=== PATIENT | female | born 1965 | race Caucasian/White ===

== ENCOUNTER 2021-08-03 20:57 | Observation (INO) | payer BC ==
[~2021-08-03] VITALS: Ht 152.4 cm; Wt 72.6 kg
[2021-08-03 21:36] VITALS: BP 131/85
[2021-08-03] MEDS ORDERED: ENTOCORT EC 3 MG3 MG PO (21:43)
[2021-08-03] MEDS ORDERED: PRILOSEC OTC20 MG PO (21:44)
[2021-08-04 03:01] LABS: ABSOLUTE EOSINOPHILS 0.1 thou/uL (0.0-0.7); ABSOLUTE MONOCYTES 0.6 thou/uL (0.0-1.2); ABSOLUTE NEUTROPHILS 9.4 thou/uL (1.6-8.1); BASOPHILS 0.4 %; EOSINOPHILS 0.5 %; HEMATOCRIT 37.7 % (37.0-47.0); HEMOGLOBIN 12.5 gm/dL (12.0-15.0); LYMPHOCYTES 16.4 %; MCH 33.3 pg (26.0-34.0); MCHC 33.3 g/dL (28.0-37.0); MCV 100.1 fL (80.0-100.0); MONOCYTES 5.1 %; MPV 8.4 fl. (7.2-11.1); NUCLEATED RBCS 0 /100WBC; PLATELET COUNT* 307 thou/uL (150-400); POLYS 77.6 %; RBC 3.76 mil/uL (4.20-5.00); RDW-CV 12.8 % (10.5-14.5); WBC 12.1 thou/uL (4.0-11.0)
[2021-08-04 03:16] LABS: CALCIUM 8.1 mg/dL (8.5-10.1); CREATININE 0.7 mg/dL (0.6-1.3); POTASSIUM 3.6 mmol/L (3.5-5.1)
[2021-08-04 03:26] LABS: ALBUMIN 3.1 g/dL (3.4-5.0); MAGNESIUM 1.9 mg/dL (1.8-2.4); TOTAL BILIRUBIN 0.4 mg/dL (<0.1-1.0); TOTAL PROTEIN 6.6 g/dL (6.4-8.2)
[2021-08-04 06:29] LABS: URINE BILIRUBIN NEGATIVE (Negative); URINE BLOOD NEGATIVE (Negative); URINE CLARITY CLEAR; URINE COLOR DARK YELLOW; URINE GLUCOSE-RANDOM NEGATIVE (Negative); URINE KETONES NEGATIVE (Negative); URINE LEUKOCYTES-REFLEX NEGATIVE (Negative); URINE NITRITE-REFLEX NEGATIVE (Negative); URINE PROTEIN NEGATIVE (Negative); URINE SPECIFIC GRAVITY >= 1.030 (1.005-1.030); URINE UROBILINOGEN 0.2 E.U./dl (0.2-1.0)
[2021-08-04 08:36] VITALS: BP 149/101
[2021-08-04 08:42] VITALS: BP 155/90
--- NOTE | 2021-08-04 09:50 | EKG ---
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: [facility] : 1965 Requested By: Mahi Recinos Order Number: [id number] MD: Alpesh Hammonds Measurements Intervals [place] Rate: 78 P: 70 ID: [id number] QRS: 21 QRSD: 100 T: 28 QT: 405 QTc: 462 Interpretive Statements Sinus rhythm Probable left atrial enlargement Low voltage, precordial leads No previous ECG available for comparison Electronically Signed On 08-04-2021 9:50:32 NURSING PROJECT COORDINATOR by Alpesh Hammonds [email or web address] <ELECTRONICALLY SIGNED> By: Alpesh Hammonds MD, [facility] 08/04/21 0950 32 32 Alpesh Hammonds MD, [facility] /EPI
--- NOTE | 2021-08-04 09:52 | EKG ---
[place] [address] ELECTROCARDIOGRAM REPORT Name: BETO DUKES Room: [address] M.R.#: [id number] Admission: 08/04/21 Attend Phys: Harshal Martinez, Discharge: Date of : 67 Date of Service: 08/04/21 0205 Report #: [id number] THIS REPORT FOR: //name// [facility] ED Test Date: 2021-08-04 Test Time: 02:05:35 Pat Name: BETO MCWILLIAMS Department: Room: [facility] Gender: F Legal Coordinator: ID : [id number] Requested By: Mahi Recinos Order Number: [id number] MD: Alpesh Hammonds Measurements Intervals [place] Rate: 74 P: 66 IA: 153 QRS: 20 QRSD: 92 T: 3 QT: 386 QTc: 429 Interpretive Statements Sinus rhythm Probable left atrial enlargement Compared to ECG 08/03/2021 21:33:27 No significant changes Electronically Signed On 08-04-2021 9:52:38 REGULATORY COMPLIANCE ENGINEER by Alpesh Hammonds [email or web address] <ELECTRONICALLY SIGNED> By: Alpesh Hammonds MD, [facility] 08/04/21 0952 0205 0205 Alpesh Hammonds MD, [facility] /EPI
[2021-08-04 10:02] LABS: CHOLESTEROL 177 mg/dL (<200); HDL CHOLESTEROL 61 mg/dL (>40); LDL CHOLESTEROL 99 mg/dL (<100); TC:HDL 2.9 Ratio (Not establshd); TRIGLYCERIDE 89 mg/dL (<150); VLDL 18 mg/dL (<40)
[2021-08-04 10:11] LABS: SERUM ASSESSMENT Clear
--- NOTE | 2021-08-04 13:39 | 2DMMODE ---
[place] [address] 2 D/M-MODE ECHOCARDIOGRAM Name: BETO DUKES Room: [address] Hussein Rogers#: [id number] Admission: 08/04/21 Attend Phys: Harshal Martinez, Discharge: Date of : 67 Date of Service: 08/04/21 1339 Report #: [id number] THIS REPORT FOR: cc: Roldan Hernandez MD, Farid M. MD Liston, Michael J. MD [facility] ~ APPROVED REPORT Study performed: 08/04/2021 13:55:09 EXAM: Comprehensive 2D, Doppler, and color-flow Echocardiogram Patient Location: Out-Patient BSA: 1.80 HR: 80 bpm BP: 155/90 mmHg Other Information Study Quality: Good Indications Chest Pain 2D Dimensions IVSd: 12.21 (7-11mm) LVOT Diam: 19.72 (18-24mm) LVDd: 40.36 mm PWd: 11.58 (7-11mm) Ascending Ao: 24.11 (22-36mm) LVDs: 26.35 (25-40mm) Aortic Root: 28.36 mm Volumes Left Atrial Volume (Systole) LA ESV Index: 12.20 mL/m2 Aortic Valve AoV Peak Александр.: 1.50 m/s AO Peak Gr.: 9.04 mmHg LVOT Max P.93 mmHg AO Mean Gr.: 5.08 mmHg LVOT Mean P.12 mmHg LVOT Max V: 0.99 m/s AO V2 VTI: 32.64 cm LVOT Mean V: 0.68 m/s GINA (VTI): 1.93 cm2 LVOT V1 VTI: 20.63 cm Mitral Valve E/A Ratio: 0.64 [place] [address] 2 D/M-MODE ECHOCARDIOGRAM Name: BETO DUKES Room: [address] Hussein Rogers#: [id number] Admission: 08/04/21 Attend Phys: Harshal Martinez, Discharge: Date of : 67 Date of Service: 08/04/21 1339 Report #: [id number] MV Decel. Time: 196.83 ms MV E Max Александр.: 0.55 m/s MV PHT: 57.08 ms MVA (PHT): 3.85 cm2 TDI E/Lateral E': 7.86 E/Medial E': 6.88 Medial E' Александр.: 0.08 m/s Lateral E' Александр.: 0.07 m/s Pulmonary Valve PV Peak Александр.: 1.06 m/s PV Peak Gr.: 4.50 mmHg Left Ventricle The left ventricle is normal size. There is normal LV segmental wall motion. There is normal left ventricular wall thickness. Left ventricular systolic function is normal. LVEF is 55-60%. Grade I - abnormal relaxation pattern. Right Ventricle The right ventricle is normal size. The right ventricular systolic function is normal. Atria The left atrium size is normal. The right atrium size is normal. Aortic Valve The aortic valve is normal in structure. No aortic regurgitation is present. There is no aortic valvular stenosis. Mitral Valve The mitral valve is normal in structure. There is no mitral valve regurgitation noted. No evidence of mitral valve stenosis. Tricuspid Valve The tricuspid valve is normal in structure. There is no tricuspid valve regurgitation noted. Pulmonic Valve The pulmonary valve is normal in structure. There is no pulmonic valvular regurgitation. Great Vessels The aortic root is normal in size. IVC is normal in size and collapses >50% [place] [address] 2 D/M-MODE ECHOCARDIOGRAM Name: BETO DUKES Room: [address] Ken#: [id number] Admission: 08/04/21 Attend Phys: Harshal Martinez, Discharge: Date of : 67 Date of Service: 08/04/21 1339 Report #: [id number] Pericardium There is no pericardial effusion. <Conclusion> The left ventricle is normal size. There is normal left ventricular wall thickness. Left ventricular systolic function is normal. LVEF is 55-60%. Grade I - abnormal relaxation pattern. There is normal LV segmental wall motion. IVC is normal in size and collapses >50% with inspiration. <ELECTRONICALLY SIGNED> By: Michele Gutierrez MD, FACC 08/04/21 1339 1339 133 Michele Gutierrez MD, FACC /INF
[2021-08-04 16:00] VITALS: BP 148/85
--- NOTE | 2021-08-04 16:40 | CARDNUC ---
[place] [address] CARDIAC NUCLEAR IMAGING REPORT Name: BETO DUKES Room: [address] Hussein Rogers#: [id number] Admission: 08/04/21 Attend Phys: Harshal Martinez, Discharge: Date of : 67 Date of Service: 08/04/21 [facility] Report #: [id number] THIS REPORT FOR: cc: Roldan Hernandez MD, Farid M. MD Liston, Michael J. MD [facility] ~ APPROVED REPORT Study performed: 08/04/2021 12:03:30 Exam: Nuclear Stress Test Indication: Chest pain, elevated troponin Patient Location: In-Patient Room #: 224 Stress Nurse: JEAN Duncan Tech:LOBO Valles Ht: 5 ft 0 in Wt: 161 lbs BSA: 1.70 m2 BMI: 31.43 Medical History Medications: no cardiac meds Allergies: penicillin Cardiac Risk Factors: Age, Current Smoker, FHX of CAD Exercise History: Physically active Stress Test Details Stress Test: Pharmacologic stress testing performed using 0.4 mg of regadenoson per 5 mL given IV over 10 seconds. Reason for pharmacologic stress test: physical limitation, bad knee. HR Resting HR: 72 bpm Max Heart Rate (APMHR): 165 bpm Max HR Achieved: 107 bpm Target HR (85% APMHR): 140 bpm % of APMHR: 64 Recovery HR: 99 bpm BP Resting BP: 157/91 mmHg Max BP: 90/68 mmHg ECG Resting ECG: Sinus Rhythm Stress ECG: [place] [address] CARDIAC NUCLEAR IMAGING REPORT Name: BETO DUKES Room: [address]#: [id number] Admission: 08/04/21 Attend Phys: Harshal Martinez, Discharge: Date of : 67 Date of Service: 08/04/21 1640 Report #: [id number] Change: None Arrhythmia: None Recovery ECG: Sinus Rhythm Recovery ST Change: None Recovery Arrhythmia: None Clinical Reason for Termination: Completed protocol The patient tolerated Lexiscan infusion without significant cardiac symptoms. Stress ECG Conclusion The baseline twelve-lead EKG shows sinus rhythm without significant ST segment or T wave abnormality. EKGs obtained during and post Lexiscan showed sinus rhythm and sinus tachycardia with no significant ST segment or T wave changes when compared to baseline. There were no stress-induced arrhythmias. NM EXAM: Myocardial Perfusion REST/STRESS Imaging Protocol: Rest Tc-99m/Stress Tc-99m 1 day Resting Data Rest SPECT myocardial perfusion imaging was performed in supine position 30 minutes following the intravenous injection of 10.9 mCi of Tc-99m Sestamibi. Time of rest injection: 1140 Date: 08/04/2021 The images were gated to evaluate regional wall motion and calculate left ventricular ejection fraction. Administration Route: IV Pharmacologic Stress Pharmacologic stress test was performed by injecting Regadenoson 0.4 mg IV push followed by the intravenous injection of 34.9 mCi of Tc-99m Sestamibi. Time of stress injection: 1245 Date: 08/04/2021 Administration Route: IV Gated Stress SPECT was performed 40 minutes after stress injection. The images were gated to evaluate regional wall motion and calculate left ventricular ejection fraction. Prone imaging was performed. Study Quality Study: Good Artifact: [place] [address] CARDIAC NUCLEAR IMAGING REPORT Name: BETO DUKES Room: [address] Hussein Rogers#: [id number] Admission: 08/04/21 Attend Phys: Harshal Martinez, Discharge: Date of : 67 Date of Service: 08/04/21 1640 Report #: [id number] Study Data At rest, the left ventricular ejection fraction was 7468%.. TID = 1.12. Perfusion Perfusion images obtained in the supine position at rest and post Lexiscan stress show a focal moderate intensity defect that resolves partially with post-rest prone imaging consistent with breast attenuation artifact. No other significant fixed or reversible defects are identified. Wall Motion Normal left ventricular wall motion. Nuclear Conclusion ECG Findings: negative for ischemia Clinical Findings: negative for ischemia Nuclear Findings: negative for ischemia Exercise Capacity: not assessed Left Ventricular Function: normal Risk Study: low Perfusion images show no defect to suggest infarct or ischemia. Left ventricular systolic function appears normal on gated studies. This is a low risk study. <Conclusion> The baseline twelve-lead EKG shows sinus rhythm without significant ST segment or T wave abnormality. EKGs obtained during and post Lexiscan showed sinus rhythm and sinus tachycardia with no significant ST segment or T wave changes when compared to baseline. There were no stress-induced arrhythmias. <ELECTRONICALLY SIGNED> By: Michele Gutierrez MD, FACC 08/04/21 1640 1640 1640 Michele Gutierrez MD, FACC /INF
[2021-08-04 20:28] VITALS: BP 131/86
[2021-08-05] VITALS: BP 130/85
[2021-08-05 04:00] VITALS: BP 152/96
[2021-08-05 05:00] LABS: HEMATOCRIT 40.1 % (37.0-47.0); HEMOGLOBIN 13.6 gm/dL (12.0-15.0); MCH 34.1 pg (26.0-34.0); MCV 100.1 fL (80.0-100.0); MPV 8.7 fl. (7.2-11.1); RDW-CV 12.9 % (10.5-14.5); WBC 9.7 thou/uL (4.0-11.0)
[2021-08-05 05:40] LABS: CALCIUM 8.1 mg/dL (8.5-10.1); CREATININE 0.8 mg/dL (0.6-1.3); MAGNESIUM 1.9 mg/dL (1.8-2.4); POTASSIUM 3.5 mmol/L (3.5-5.1); TOTAL BILIRUBIN 0.6 mg/dL (<0.1-1.0); TOTAL PROTEIN 6.5 g/dL (6.4-8.2)
[2021-08-05 08:30] VITALS: BP 142/93
[2021-08-05 11:23] VITALS: BP 145/95
[2021-08-05 15:07] VITALS: BP 145/95
== END 2021-08-05 16:55 | disposition home or self-care (01) ==
LOC: M.ERS 20:57 → M.2W 08-04 07:05 → M.TBA-ER 08-04 07:05 → M.2W 08-04 08:41
PROVIDERS: Emergency Medicine; Internal Medicine; Registered Nurse; ADMIT Internal Medicine; ATTEND Internal Medicine
DX: R07.89 Other chest pain (principal); Z20.822 Contact with and (suspected) exposure to COVID-19; R77.8 Other specified abnormalities of plasma proteins; D72.829 Elevated white blood cell count, unspecified; F17.210 Nicotine dependence, cigarettes, uncomplicated; Z79.899 Other long term (current) drug therapy

== ENCOUNTER → 2021-08-20 | Outpatient (CLI) | payer BC ==
[~2021-08-20] MED LIST: ENTOCORT EC 3 MG3 MG PO; PRILOSEC OTC20 MG PO
== END ==
LOC: M.NUC 08-19 07:45
PROVIDERS: ATTEND Internal Medicine Gastroenterology
DX: R10.13 Epigastric pain (principal); R07.9 Chest pain, unspecified; R10.11 Right upper quadrant pain

== ENCOUNTER → 2021-08-31 | Outpatient (CLI) | payer BC | LOC: M.NUC 07:12 | PROVIDERS: ATTEND Internal Medicine Gastroenterology | DX: R68.81 Early satiety (principal); R10.10 Upper abdominal pain, unspecified; R19.7 Diarrhea, unspecified ==